=== PATIENT | male | born 1965 | race Caucasian/White ===

== ENCOUNTER 2021-10-30 12:18 | Inpatient (IN) | payer OTHER ==
[~2021-10-30] VITALS: Ht 162.6 cm; Wt 77.6 kg
[2021-10-30] MEDS ORDERED: SODIUM CHLORIDE 0.9% 1,000 ML IV ONE (12:45)
[2021-10-30 13:14] LABS: BASOPHILS % 1.2 % (0.0-2.0); HEMATOCRIT. 42.5 % (42.0-52.0); HEMOGLOBIN. 14.1 g/dL (14.0-18.0); MEAN CORPUSCULAR HEMOGLOBIN 29.9 pg (28.0-32.0); MEAN CORPUSCULAR VOLUME 89.9 fL (80.0-94.0); MEAN PLATELET VOLUME 8.4 fl (7.4-10.4); MONOCYTES % 8.6 % (2.0-8.0); NEUTROPHILS % 72.2 % (40.0-76.0); PLATELET 334 x1000/uL (130-400); RED BLOOD CELL COUNT 4.73 mill/uL (4.7-6.1); RED CELL DISTRIBUTION WIDTH 13.3 % (11.6-14.6)
[2021-10-30 13:20] LABS: CHLORIDE 109 mEq/L (98-107)
[2021-10-30 13:23] LABS: PROTHROMBIN TIME 10.9 sec (9.6-11.0)
[2021-10-30] MEDS ORDERED: PANTOPRAZOLE SODIUM 40 MG/VIAL IV ONE (14:45)
[2021-10-30 15:29] LABS: HEMATOCRIT 37.8 % (42.0-52.0); HEMOGLOBIN 12.3 g/dL (14.0-18.0)
[2021-10-30 17:17] VITALS: BP 144/99
[2021-10-30 17:26] LABS: TOTAL IRON BINDING CAPACITY 455 ug/dL (250-450)
[2021-10-30 17:28] VITALS: BP 144/99
[2021-10-30] MEDS ORDERED: GUAIFENESIN 200MG/10ML SUGAR FREE UDC PO PRN (17:30)
[2021-10-30] MEDS ORDERED: ONDANSETRON HCL 4MG/2ML INJ IV PRN (17:30)
[2021-10-30] MEDS ORDERED: ACETAMINOPHEN 325MG TABLET PO PRN ×2 (17:30)
[2021-10-30] MEDS ORDERED: ACETAMINOPHEN 650MG SUPP PR PRN ×2 (17:30)
[2021-10-30] MEDS ORDERED: LORAZEPAM 0.5MG TABLET PO PRN (17:30)
[2021-10-30] MEDS ORDERED: CLONIDINE 0.1MG TABLET PO PRN (17:30)
[2021-10-30] MEDS ORDERED: MAGNESIUM/ALUMINUM HYDROXIDE/SIMETHICONE 30ML UDC PO PRN (17:30)
[2021-10-30] MEDS ORDERED: DOCUSATE SODIUM 100MG CAPSULE PO PRN (17:30)
[2021-10-30] MEDS ORDERED: MORPHINE SULFATE 2 MG/ML CPJ (NOT FOR IM USE) IV PRN (17:30)
[2021-10-30] MEDS ORDERED: DIPHENHYDRAMINE 50MG/ML VIAL IV PRN (17:30)
[2021-10-30] MEDS ORDERED: IPRATROPIUM/ALBUTEROL 0.5-3(2.5)MG/3ML NEB HHN PRN (17:30)
[2021-10-30] MEDS ORDERED: ASPI-1497 MT (17:41)
[2021-10-30] MEDS ORDERED: ATOR-2 MT (17:41)
[2021-10-30] MEDS ORDERED: AMLO5TAB88 MT (17:41)
[2021-10-30 17:45] LABS: FERRITIN 31 ng/mL (22-322)
[2021-10-30 17:51] LABS: VITAMIN B12 SERUM 589 pg/mL (211-911)
[2021-10-30 17:54] LABS: FOLIC ACID (FOLATE) SERUM > 20.00 ng/mL (>5.38)
[2021-10-30] MEDS ORDERED: *PATIENT'S OWN MEDICATION STORAGE XX SCH (18:30)
[2021-10-30] MEDS ORDERED: TRAMADOL 50MG TABLET PO PRN (18:45)
[2021-10-30] MEDS ORDERED: IBUPROFEN 400MG TABLET PO PRN (18:45)
[2021-10-30 20:00] VITALS: BP 137/95
[2021-10-30 22:04] LABS: CREATINE KINASE 157 IU/L (39-308)
[2021-10-30 23:56] VITALS: BP 101/61
[2021-10-31 04:00] VITALS: BP 102/65
[2021-10-31 08:00] VITALS: BP 105/69
[2021-10-31 09:16] LABS: BASOPHILS % 1.4 % (0.0-2.0); HEMATOCRIT. 38.1 % (42.0-52.0); HEMOGLOBIN. 12.8 g/dL (14.0-18.0); LYMPHOCYTES % 25.6 % (20.0-50.0); MEAN CORPUSCULAR HEMOGLOBIN 30.3 pg (28.0-32.0); MEAN PLATELET VOLUME 8.3 fl (7.4-10.4); MONOCYTES % 8.6 % (2.0-8.0); NEUTROPHILS % 60.4 % (40.0-76.0); PLATELET 288 x1000/uL (130-400); RED BLOOD CELL COUNT 4.23 mill/uL (4.7-6.1); RED CELL DISTRIBUTION WIDTH 13.2 % (11.6-14.6)
[2021-10-31 09:24] LABS: CHLORIDE 107 mEq/L (98-107)
[2021-10-31 09:26] LABS: PROTHROMBIN TIME 10.9 sec (9.6-11.0)
[2021-10-31 09:40] LABS: HDL CHOLESTEROL 52 mg/dL (40-59); LDL CHOLESTEROL 47 mg/dL (5-100)
[2021-10-31 12:00] VITALS: BP 104/69
[2021-10-31 16:00] VITALS: BP 111/71
[2021-10-31 19:43] VITALS: BP 120/79
[2021-11-01] VITALS: BP 113/69
[2021-11-01] MEDS ORDERED: ANUHCC TP (02:30)
[2021-11-01 02:52] VITALS: BP 109/73
[2021-11-01 04:00] VITALS: BP 109/73
[2021-11-01 08:00] VITALS: BP 120/89
[2021-11-01 12:00] VITALS: BP 118/74
== END 2021-11-01 14:49 | disposition home or self-care (01) | DRG 394 ==
LOC: ER 12:18 → 6WST 15:29 → EDBEDREQ 15:34 → EDBEDREQTM 15:34 → ENRESERV 15:44
PROVIDERS: ADMIT Family Medicine Adult Medicine; ATTEND Family Medicine Adult Medicine
DX: K64.4 Residual hemorrhoidal skin tags (principal); J98.11 Atelectasis; E78.00 Pure hypercholesterolemia, unspecified; I10 Essential (primary) hypertension; K42.9 Umbilical hernia without obstruction or gangrene; E78.5 Hyperlipidemia, unspecified; Z79.82 Long term (current) use of aspirin; Z88.6 Allergy status to analgesic agent; Z87.891 Personal history of nicotine dependence
CPT/HCPCS: 36415; 71045; 80048; 80053; 80061; 82550; 82607; 82728; 82746; 83540; 83550; 84443; 84484; 85014; 85018; 85025; 85044; 86850; 86900; 93005; 99291; C9113; J7030